=== PATIENT | male | born 1965 | race Two or more races ===

== ENCOUNTER → 2024-12-27 | Outpatient (CLI) | payer MEDICAID, SELFPAY ==
--- NOTE | 2024-12-27 11:30 | XR_ITS ---
Examination: Prostate sonography complete TECHNIQUE: Grayscale sonographic images prostate Date and time: December 27, 2024 1155 hours INDICATIONS: CT examination with 2022 moderate prostatomegaly with irregular prostate contour, elevated PSA on laboratory examination this month. FINDINGS: Prostate 3.6 x 3.9 x 4.5 cm volume 34 cc Calcifications in the prostate No prostate nodule No bladder mass, bladder prevoid volume 381 cc IMPRESSION: Mild prostatomegaly No prostate nodules If PSA remains elevated, recommend transrectal prostate sonography follow-up
== END | disposition home or self-care (01) ==
LOC: CDIM 11:31
PROVIDERS: Referring Provider Physician Assistant; Visit Provider Physician Assistant
DX: N40.0 Benign prostatic hyperplasia without lower urinary tract symptoms (principal); R97.20 Elevated prostate specific antigen [PSA]
CPT/HCPCS: 76873